=== PATIENT | female | born 1945 | race Two or more races ===

== ENCOUNTER 2019-09-09 08:00 | Inpatient (IN) | payer OTHER ==
[~2019-09-09] VITALS: Ht 157.5 cm; Wt 63.5 kg
[2019-09-10] MEDS ORDERED: IRBESARTAN-HCT1 EAC1 PO (08:47)
[2019-09-10] MEDS ORDERED: LIPITOR20 MG PO (08:47)
[2019-09-10] MEDS ORDERED: AMLODIPINE BESYL5 MG PO (08:47)
[2019-09-10] MEDS ORDERED: METFORMIN HCL850 M1 PO (08:48)
[2019-09-10] MEDS ORDERED: ASPIR 8181 MG PO (08:48)
[2019-09-10] MEDS ORDERED: FOLIC ACID20 MG PO (08:48)
[2019-09-15] MEDS ORDERED: BACTRIM DS TAB1 EACH PO (07:33)
[2019-09-15] MEDS ORDERED: IBUPROFEN600 MG PO (07:33)
== END 2019-09-15 08:54 | DRG 743 ==
LOC: ADM 08:00 → OB/GYN 09-13 07:58 → O/R 09-13 07:58 → EDSTATUS 09-13 08:00 → ADM 09-13 08:00 → O/R 09-13 09:30 → OB/GYN 09-13 15:59
PROVIDERS: ADMIT Obstetrics & Gynecology Gynecology; ATTEND Obstetrics & Gynecology Gynecology
PROC: 0UT74ZZ Resection of Bilateral Fallopian Tubes, Percutaneous Endoscopic Approach (ICD-10-PCS; 2019-09-13)
PROC: 0UT24ZZ Resection of Bilateral Ovaries, Percutaneous Endoscopic Approach (ICD-10-PCS; 2019-09-13)
PROC: 0UT94ZZ Resection of Uterus, Percutaneous Endoscopic Approach (ICD-10-PCS; principal; 2019-09-13 09:30)
DX: N80.0 Endometriosis of uterus (principal); N83.331 Acquired atrophy of right ovary and fallopian tube; N95.0 Postmenopausal bleeding